=== PATIENT | male | born 1955 | race Caucasian/White ===

== ENCOUNTER 2018-01-31 14:47 | Emergency (ER) | payer OTHER ==
[~2018-01-31] VITALS: Ht 188 cm; Wt 145.1 kg
[2018-01-31 14:49] VITALS: BP 0/0
[2018-01-31] MEDS ORDERED: SODIUM BICARBONATE 8.4% INJ 50ML SYRINGE IV ONE (14:52)
[2018-01-31] MEDS ORDERED: EPINEPHrine HCL 1 MG/10 ML SYRG IV ONE (14:52)
[2018-01-31] MEDS ORDERED: CALCIUM CHLOR(10%) 100MG/ML 10ML SYRINGE IV ONE (14:52)
== END 2018-01-31 20:07 | disposition expired ==
LOC: EDBD 14:49 → ER 14:51
DX: I46.9 Cardiac arrest, cause unspecified (principal); J44.9 Chronic obstructive pulmonary disease, unspecified
CPT/HCPCS: 92950